=== PATIENT | male | born 2005 | race Two or more races ===

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

== ENCOUNTER 2025-04-18 10:47 | Emergency (ER) | payer OTHER, SELFPAY ==
--- NOTE | ~2025-04-18 | CT_ITS ---
EXAMINATION: CT CERVICAL SPINE WITHOUT CONTRAST CLINICAL INFORMATION: Head strike. Pain. COMPARISON: None available. TECHNIQUE: Contiguous axial images through the cervical spine using 3 mm collimation with bone and soft tissue algorithm. Sagittal and coronal reformatted images acquired.. Total DLP of: [address] examination was performed using dose optimization techniques as appropriate, variously including the following: *Automated exposure control *Adjustment of mA and/or kV according to patient size (this includes techniques or standardized protocols for targeted exams where dose is matched to indication/reason for exam; i.e. extremities or head) *Use of iterative reconstruction technique FINDINGS: Craniocervical junction is intact with normal alignment between the occipital condyles and the lateral masses of C1. C1 is intact. C2 is intact. C3 is intact. C4 is intact. C5 is intact. C6 is intact. C7 is intact. There is a 1.3 mm gap at the left facet joint, L4-5, nonspecific. No prevertebral compartment hematoma. Bilateral prominent cervical lymph nodes, nonspecific. No dominant nodules in normal sized thyroid gland. There is an aberrant right subclavian artery with a retroesophageal trajectory. Tympanic cavities and mastoid cells are aerated. CT/CT cervical spine wo IV con IMPRESSION: No acute fracture or trauma-related listhesis. Nonspecific prominent cervical lymph nodes. Aberrant right subclavian artery. Fleischner guidelines were followed. Electronically signed by: Gabriele Miller MD 04/18/2025 01:31 PM EDT
--- NOTE | ~2025-04-18 | CT_ITS ---
EXAMINATION: CT HEAD WITHOUT CONTRAST CLINICAL INFORMATION: headstrike, pain COMPARISON: None available. TECHNIQUE: Contiguous axial imaging was performed from the skull base to vertex without intravenous administration of contrast. This CT examination was performed using dose optimization techniques as appropriate, variously including the following: *Automated exposure control *Adjustment of mA and/or kV according to patient size (this includes techniques or standardized protocols for targeted exams where dose is matched to indication/reason for exam; i.e. extremities or head) *Use of iterative reconstruction technique DLP: 884.21 mGy-cm FINDINGS: Cortical deformity of the nasal bones mostly on the left side. No acute cortical disruption in the bony calvarium. No acute intracranial hemorrhage, mass effect, midline shift, hydrocephalus or herniation. Morton-white matter differentiation is normal. Posterior cranial fossa contents demonstrated no acute hemorrhage or mass effect. Normal position of the cerebellar tonsils. Sellar/suprasellar region demonstrated no gross masses. Polypoid mucosal thickening, left ethmoid air cells, left maxillary sinus. No acute hematoma in the intraconal or extraconal compartments of the orbits. CT/CT head/brain wo IV con IMPRESSION: Nasal bone fractures. No acute fracture in the bony calvarium. No acute intracranial hemorrhage or acute brain abnormality. Electronically signed by: Gabriele Miller MD 04/18/2025 01:25 PM EDT
--- NOTE | ~2025-04-18 | CT_ITS ---
EXAMINATION: CT CHEST WITH IV CONTRAST, CT ABDOMEN PELVIS WITH IV CONTRAST INDICATION: 8 foot fall L rib pain COMPARISON: Correlation is made with a CT of the abdomen dated 06/12/2023.. TECHNIQUE: CT scan of the chest, abdomen and pelvis was performed following administration of 85 mL Omnipaque 350 using standard departmental protocol. Coronal and sagittal reformatted images were generated and reviewed. Oral contrast material was not administered at the request of the referring physician. This CT exam was performed with one or more of the following dose reduction techniques: automated exposure control, adjustment of the mA and/or kV according to patient size, use of iterative reconstruction technique. DLP: 1470 mGy-cm CHEST: THYROID: The thyroid is unremarkable. LUNGS: There are scattered groundglass opacities in both lungs which may be due to to the phase of respiration. The lungs are otherwise clear. MEDIASTINUM: There is no mediastinal lymphadenopathy. ROLY: There is no hilar lymphadenopathy. CARDIOVASCULATURE: The heart is normal in size. There is no pericardial effusion. The thoracic aorta is normal in caliber. There is an aberrant right subclavian artery. DEGREE OF CORONARY CALCIFICATION: none PLEURA: There is no pleural effusion. No pneumothorax. MAIN AIRWAYS: The mainstem bronchi and proximal branches are patent. AXILLA: There is no axillary lymphadenopathy. SOFT TISSUES: Unremarkable. BONES: The bones are intact. ABDOMEN: LIVER: The liver is normal in size and contour. No liver mass is identified. The hepatic and portal veins are patent. GALLBLADDER / BILE DUCTS: The gallbladder is unremarkable. There is no intra or extrahepatic biliary ductal dilatation. SPLEEN: The spleen is normal in size. No focal splenic lesion is identified. PANCREAS: The pancreas is unremarkable in appearance. ADRENAL GLANDS: Within normal limits. KIDNEYS/RETROPERITONEUM: No renal calculi are identified. There is no hydronephrosis. No renal masses are identified. LYMPH NODES: No abdominal or pelvic lymphadenopathy. VASCULATURE: The abdominal aorta is normal in caliber. MESENTERY/PERITONEUM: No free fluid. No masses. There is no free intraperitoneal gas. STOMACH: The stomach is unremarkable. SMALL BOWEL: The small bowel is normal in caliber. COLON: The colon is unremarkable. APPENDIX: Normal. URINARY BLADDER/PELVIC ORGANS: The urinary bladder is unremarkable. The prostate is normal in size. BONES / SOFT TISSUES: No suspicious bony or soft tissue abnormalities. CT/CT abdomen pelvis w IV con IMPRESSION: No evidence of traumatic injury to the chest, abdomen, or pelvis. Electronically signed by: Johnathan Dillon MD 04/18/2025 01:31 PM EDT
[2025-04-18 11:04] VITALS: BP 164/74; PULSE 98; RESP 16; TEMP 36.5; O2SAT 98; BMI 34.6
--- NOTE | 2025-04-18 11:04 | ED.GENADULT ---
HPI - General Adult General Chief complaint: Head Injury Stated complaint: fell off ladder, landed on head, back pain Time Seen by Provider: 04/18/25 11:23 Source: patient Mode of arrival: ambulatory Limitations: no limitations History of Present Illness ED Provider: DOROTHY RÍOS narrative: 20 yo male with PMH of PTSD, asthma, prior AIN hx VANDA with c/o just before 9am at work he fell off a ladder that was approx 8 feet tall. He landed on the back of his head and L flank/back. He denies ext injury. No LOC but has nausea and dizziness after. He was able to get up. He got a ride here. He is not on blood thinners. 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 Onset (ago): day(s) (today just before 9am) Location: head, chest, back and left Radiation: non-radiation Severity: moderate Quality: aching Pain Consistency: constant Relieving factors: immobilization Exacerbating factors: movement Associated symptoms: headaches and nausea/vomiting Treatments prior to arrival: other Related Data Home Medications ?Medication ?Instructions ?Recorded ?Confirmed cetirizine 10 mg tablet 10 mg PO DAILY 06/13/23 06/13/23 fluoxetine 20 mg capsule 20 mg PO DAILY 06/13/23 06/13/23 Previous Rx's ?Medication ?Instructions ?Recorded amlodipine 2.5 mg tablet 2.5 mg PO DAILY #30 tabs 06/17/23 cyclobenzaprine 10 mg tablet 10 mg PO TID PRN muscle spasm #20 04/18/25 tabs ibuprofen 600 mg tablet 600 mg PO Q6H PRN pain #30 tabs 04/18/25 ondansetron 4 mg disintegrating 4 mg PO Q8H PRN nausea and 04/18/25 tablet vomiting #20 tabs Allergies Allergy/AdvReac Type Severity Reaction Status Date / Time No Known Allergies Allergy Verified 04/18/25 11:06 Review of Systems Review of Systems: Constitutional : No Fever, No Chills, No Fatigue ENT/Mouth : No sore throat, No Rhinorrhea Eyes: No Eye Pain, No Swelling, No Redness Cardiovascular : No Chest Pain, No SOB, No Dyspnea on Exertion Respiratory : No Cough, No Sputum Gastrointestinal : pos Nausea, No Vomiting, No Diarrhea, No abdominal Pain Genitourinary : No Dysuria, No Urinary Frequency, No Hematuria, Musculoskeletal : No joint pain, No Myalgias, No Joint Swelling, pos back pain, pos flank pain, pos L rib pain Skin : No Skin Lesions, No rash Neuro : No Weakness, No Numbness, pos Dizziness, positive Headache All other systems reviewed and are negative [facility] Past Medical History Attestation statement: The following information was validated with the patient. Source: old records reviewed Medical History AIN (acute interstitial nephritis) Asthma Persistent mood [affective] disorder, unspecified Cannabis use disorder PTSD (post-traumatic stress disorder) Surgical History No pertinent past surgical history Social History Social History Household Members: Family Housing: Apartment Do you presently have visiting nurse or other home services: No Alcohol intake: current Alcohol intake frequency: a few times a month Patient Tobacco Use Status: Former Tobacco user Smoked in Last 30 Days: No Use of substances other than those prescribed or required for medical reasons: No Substance Use Type: Marijuana Advance Directives: No Advance Directives Information Provided: No Do you have a plan to hurt others: No Plan service: No Sexual orientation: Straight/Heterosexual Physical Exam ED Vital Signs: Vital Signs - 24 hr 04/18/25 11:04 04/18/25 11:16 Temperature 97.7 F 97.7 F Pulse Rate 98 98 Respiratory Rate 16 16 Blood Pressure 164/74 H 164/74 H Pulse Oximetry 98 98 BMI result Body Mass Index 34.6 Appearance: Alert. Oriented X3. No acute distress. Eyes: Pupils equal, round and reactive to light. ENT: Pharynx normal. no koch or racoon sign, pain along L occiput Neck: Normal inspection. reports bilateral upper cervical midline ttp no step offs in c collar CVS: Normal heart rate and rhythm. Pulses normal. Respiratory: No respiratory distress. Breath sounds normal. Abdomen: Soft and nontender. L posterior flank pain Back: ttp along L lateral lumbar area Skin: Skin warm and dry. Normal skin color. Normal skin turgor. Extremities: No lower extremity edema. Neuro: Oriented X 3. No motor deficit. No sensory deficit. Course Course Course Narrative: Rapid medical examination performed in triage by Ruby Matute PA-C. Patient is a 20 year old assigned male at presenting to the emergency department with a headache, dizziness, and nausea. Patient states that he was 8 feet up when the ladder kicked out and he fell, landing on his head. Detailed physical exam and review of systems are deferred to the escalator installer. Imaging ordered. C-collar placed. vendette aware. Medications Administered Discontinued Medications Generic Name Dose Route Start Last Admin Trade Name Freq PRN Reason Stop Dose Admin Lactated Ringer's 1,000 mls @ 999 mls/hr 04/18/25 11:37 04/18/25 13:12 Lr IV 04/18/25 12:37 Infused .Q1H1M ONE Infusion Iohexol 100 ml 04/18/25 12:50 04/18/25 12:50 Iohexol 350 Mg/Ml 100 Ml Infus..Btl IV 04/18/25 12:51 100 ml ONCE ONE Administration Morphine Sulfate 4 mg 04/18/25 11:37 04/18/25 11:58 Morphine Sulfate 4 Mg/Ml Cartridge IVPUSH 04/18/25 11:38 4 mg ONCE ONE Administration Protocol Ondansetron HCl 4 mg 04/18/25 11:37 04/18/25 11:58 Ondansetron Hcl 4 Mg/2 Ml Vial IVPUSH 04/18/25 11:38 4 mg ONCE ONE Administration Medical Decision Making Medical Decision Making [facility] Narrative: 20 yo male with PMH of PTSD, asthma, prior AIN hx VANDA with c/o now here with c/o head pain, neck pain, L rib pain, L low back and flank pain s/p fall approx 8 feet he will need labs, IVF, IV morphine for pain, CT scans for trauma. Differential Diagnosis Differential Diagnoses: The differential diagnosis associated with the presentation includes head injury, trauma, contusion Admission/Observation Consideration of admission/observation: Escalation of care including admission/observation considered negative work up stable for DC Lab Data [facility] Lab Attestation statement: I reviewed the patient's lab results. 04/18/25 12:10 04/18/25 12:10 Labs: Lab Results 04/18/25 Range/Units 12:10 WBC 6.9 (4.8-10.8) X10*3/uL RBC 5.38 (4.60-5.80) X10*6/uL Hgb 15.3 (14.0-18.0) g/dl Hct 44.8 (42.0-52.0) % MCV 83.3 (80.0-98.0) fL MCH 28.4 (27.0-33.0) pg MCHC 34.2 (31.0-36.0) g/dl RDW 13.2 (11.0-16.0) % Plt Count 176 (160-400) X10*3/uL MPV 9.9 (9.4-12.4) fL Immature Gran % (Auto) 0.3 (0.0-0.4) % Neut % (Auto) 70.0 (45-73) % Lymph % (Auto) 19.0 L (20-40) % Wilbarger % (Auto) 9.4 (2-11) % Eos % (Auto) 1.0 (0-4) % Baso % (Auto) 0.3 (0-2) % Lymph # (Auto) 1.3 (1.2-4.9) X10*3/uL Wilbarger # (Auto) 0.7 (0.1-1.2) X10*3/uL Eos # (Auto) 0.1 (0.0-0.4) X10*3/uL Baso # (Auto) 0.0 (0.0-0.2) X10*3/uL Abs Immat Gran (auto) 0.02 (0.00-0.03) X10*3/uL Absolute Neuts (auto) 4.8 (2.0-8.3) x10*3/uL Absolute Nucleated RBC 0.000 (0.0-0.012) X10*3/uL Nucleated RBC % (auto) 0.0 (0.0-0.2) /100WBC Sodium 140 (135-145) mmol/L Potassium 3.9 (3.3-5.1) mmol/L Chloride 110 H (96-108) mmol/L Carbon Dioxide 24 (22-29) mmol/L Anion Gap 10 L (12-20) BUN 13 (9-16) mg/dL Creatinine 0.73 (0.5-1.4) mg/dL Estim Creat Clear Calc 230.5 Estimated GFR > 60 Random Glucose 87 (60-115) mg/dL Calcium 9.7 (8.4-10.2) mg/dL Total Bilirubin 0.7 (0.0-1.0) mg/dL Direct Bilirubin 0.2 (0.0-0.5) mg/dL AST 27 (5-37) U/L ALT 35 (0-40) U/L Alkaline Phosphatase 94 (39-117) U/L Total Protein 7.4 (6.5-8.0) g/dL Albumin 4.7 (3.5-5.0) g/dL Independent Interpretation I performed an independent interpretation of an: CT Scan (trauma scans only nasal bone fracture) Radiology Impression Discussion of test interpretation with radiology: I have reviewed the radiologist's reading. External Record Review External record reviewed: Outpatient record, Prior outpatient labs and Prior outpatient radiology Discharge Plan Discharge Clinical Impression: Closed head injury Qualifiers: Encounter type: initial encounter Qualified Code(s): S09.90XA - Unspecified injury of head, initial encounter Low back pain Qualifiers: Chronicity: acute Back pain laterality: bilateral Sciatica presence: without sciatica Qualified Code(s): M54.50 - Low back pain, unspecified Fracture closed, nasal bone Qualifiers: Encounter type: initial encounter Qualified Code(s): S02.2XXA - Fracture of nasal bones, initial encounter for closed fracture Patient Disposition: Home, Self-Care Instructions: Nasal Fracture (ED), Head Injury (ED), Acute Low Back Pain (ED) Additional Instructions: your CT scans were negative only positive for L sided nasal bone fracture do not blow your nose for 2 weeks avoid trauma to the nose follow up with ENT in next month if you feel there is deformity or you are having trouble breathing rest and stay hydrated off work, movies, video games, exercise for 1 week return for any worsening symptoms or concerns [facility] - can call to follow up Prescriptions: New cyclobenzaprine 10 mg tablet 10 mg PO TID PRN (Reason: muscle spasm) Qty: 20 0RF ibuprofen 600 mg tablet 600 mg PO Q6H PRN (Reason: pain) Qty: 30 0RF ondansetron 4 mg tablet,disintegrating 4 mg PO Q8H PRN (Reason: nausea and vomiting) Qty: 20 0RF No Action cetirizine 10 mg tablet 10 mg PO DAILY fluoxetine 20 mg capsule 20 mg PO DAILY amlodipine 2.5 mg Tablet 2.5 mg PO DAILY Qty: 30 0RF Protocol: Hold for SBP< HOLD for SBP < : 90 Stand Alone Forms: Work/School Release Print Language: Lithuanian
[2025-04-18 11:16] VITALS: BP 164/74; PULSE 98; RESP 16; TEMP 36.5; O2SAT 98
--- NOTE | 2025-04-18 11:19 | PC.NURSE ---
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 A+OX4, anxious, cooperative. C/o head and neck pain, c-collar in place, c/o pain behind eyes. Pt denies LOC with fall. Pt also c/o left sided lower back pain. PERRLA. RR even and unlaored, denies CP or SOB. Pt is ambulatory.
[2025-04-18] MEDS: Lactated Ringers 1,000 ML 999 ML IV (11:57)
[2025-04-18 12:14] LABS: MANUAL DIFF FLAG NO
[2025-04-18 12:16] LABS: Hematocrit 44.8 % (42.0-52.0); Hemoglobin 15.3 g/dl (14.0-18.0); Imm Gran Abs Auto 0.02 X10*3/uL (0.00-0.03); Imm Gran Pct Auto 0.3 % (0.0-0.4); Lymphocytes Absolute Auto 1.3 X10*3/uL (1.2-4.9); Mean Corpuscular HGB Conc 34.2 g/dl (31.0-36.0); Mean Corpuscular Hemoglobin 28.4 pg (27.0-33.0); Mean Corpuscular Volume 83.3 fL (80.0-98.0); NRBC Abs Auto 0.000 X10*3/uL (0.0-0.012); NRBC Pct Auto 0.0 /100WBC (0.0-0.2); Platelet Count 176 X10*3/uL (160-400); Red Blood Count 5.38 X10*6/uL (4.60-5.80); White Blood Count 6.9 X10*3/uL (4.8-10.8)
[2025-04-18 12:32] LABS: Alanine Aminotransferase 35 U/L (0-40); Albumin Level 4.7 g/dL (3.5-5.0); Alkaline Phosphatase 94 U/L (39-117); Anion Gap 10 (12-20); Aspartate Amino Transferase 27 U/L (5-37); Blood Urea Nitrogen 13 mg/dL (9-16); Calcium 9.7 mg/dL (8.4-10.2); Carbon Dioxide 24 mmol/L (22-29); Chloride 110 mmol/L (96-108); Creatinine Clr Calc Pharmacy 230.5; Estimated Glomerular Filt Rate > 60; Potassium 3.9 mmol/L (3.3-5.1); Sodium 140 mmol/L (135-145); Total Protein 7.4 g/dL (6.5-8.0)
[2025-04-18] MEDS: iohexoL 350 MG/ML 100 ML INFUS..BTL IV (12:50)
--- OUTSIDE RECORDS SUMMARY | 2025-04-18 13:06 | XMS_ITS | Clinical Summary ---
Author Organization [facility] Address [address] [facility] [[email or web address]] [address] [place] [address] Phone Care Team Providers Care E Business Consultant Name Role Phone Monica Kam NP Primary Care Provider [phone] Medications No known medications Active Problems Problem Noted Date Diagnosed Date Asthma 07/23/2023 07/23/2023 Eczema 07/23/2023 07/23/2023 Post-traumatic stress disorder 07/23/2023 0 07/23/2023 Sprain of knee 08/21/2017 07/23/2023 Immunizations Immunization Administration Dates Next Due DTaP 04/07/2009,06/16/2006,2005 ,2005,2005 HPV, Quadrivalent 08/28/2017,12/31/2016 Hep B, Unspecified 2005,2005, 005 HiB 06/16/2006,2005,2005 ,2005 Social History Tobacco Use Types Packs/Day Years Used Date Smoking Tobacco: Never Smokeless Tobacco: Never Alcohol Use Standard Drinks/Week Comments Yes 0 (1 standard drink = 0.6 oz pur e alcohol) Sex and Gender Information Value Date Recorded Sex Assigned at Not on file Legal Sex Male 8:07 AM EST Gender Identity Not on file Sexual Orientation Not on file Last Filed Vital Signs Vital Sign Reading Time Taken Comments Blood Pressure 122/54 09/19/2023 10:56 AM EST Pulse 82 09/19/2023 10:56 AM EST Temperature - - Respiratory Rate - - Oxygen Saturation - - Inhaled Oxygen Concentration - - Weight 120 kg (264 lb) 09/19/2023 10:56 AM EST Height - - Body Mass Index - - Plan of Treatment Health Maintenance Due Date Last Done Comments Influenza Vaccine (#1) 2025 1, 04/07/2009, 06/06/2008, Additional history exists Hepatitis B Vaccine Completed 2005, 2005, 2005 Pneumococcal Vaccine: Peds (0 to 5 Years) and At-Risk Patients (6 to 49 Years) Aged Out 06/16/2006, 2005, 2005, Additional history exists No longer eligible based on patient's age to complete this topic Insurance [facility] Medicaid [facility] Medicaid Care Teams E Business Consultant Relationship Specialty Start Date End Date Monica Kam NP [address] [place] [id number] PCP - General Internal Medicine 09/19/23
[2025-04-18 14:41] VITALS: BP 137/92; PULSE 66; RESP 18; TEMP -17.7; TEMP 0; O2SAT 99
== END 2025-04-18 14:44 | disposition home or self-care (01) ==
PROVIDERS: Emergency Provider Emergency Medicine; PCP Nurse Practitioner Family
DX: S02.2XXA Fracture of nasal bones, initial encounter for closed fracture (principal); R10.2 Pelvic and perineal pain; R07.89 Other chest pain; M54.2 Cervicalgia; R51.9 Headache, unspecified; R11.2 Nausea with vomiting, unspecified; M54.50 Low back pain, unspecified; W11.XXXA Fall on and from ladder, initial encounter; Y93.9 Activity, unspecified; Y92.9 Unspecified place or not applicable; Y99.0 Civilian activity done for income or pay; Z79.899 Other long term (current) drug therapy; Z87.891 Personal history of nicotine dependence
CPT/HCPCS: 36415; 70450; 71260; 72125; 74177; 80048; 80076; 85025; 96361; 96374; 96375; 99285; J2270; J2405; J7120; Q9967

== ENCOUNTER → 2025-04-18 11:06 | Outpatient (BNV) | payer OTHER, SELFPAY | PROVIDERS: Emergency Provider Emergency Medicine; PCP Nurse Practitioner Family; Visit Provider Radiology Diagnostic Radiology | DX: R10.9 Unspecified abdominal pain (principal); R07.89 Other chest pain; M54.2 Cervicalgia; S02.2XXA Fracture of nasal bones, initial encounter for closed fracture; W11.XXXA Fall on and from ladder, initial encounter | CPT/HCPCS: 70450; 71260; 72125; 74177 ==